=== PATIENT | female | born 1960 | race Caucasian/White ===

== ENCOUNTER 2021-03-05 15:29 | Emergency (ER) | payer BC ==
[2021-03-05] MEDS ORDERED: Cyclobenzaprine 10 MG Tab PO ONE (16:36)
[2021-03-05] MEDS ORDERED: Ketorolac 15 MG/ML SDV IM ONE (18:13)
--- NOTE | 2021-03-05 18:38 | EDM.PDOC ---
<Shorty Shultz - Last Filed: 03/05/21 19:14> ED HPI GENERAL MEDICAL PROBLEM - General Chief Complaint: Back Pain or Injury Stated Complaint: BACK PAIN Time Seen by Provider: 03/05/21 16:20 - History of Present Illness INITIAL COMMENTS - FREE TEXT/NARRATIVE: CHIEF COMPLAINT(S): Back pain HISTORY OF PRESENT ILLNESS: This is a 61-year-old woman with a past medical history of left-sided sciatica who comes to the emergency department with a chief complaint of back pain. The patient states that for the last 3 days she has been experiencing back pain. She states that she woke up with what she thought was sciatica so she went to the chiropractor where they had an adjustment done via a drop table. She states that since that time she has been experiencing pain in her mid thoracic area radiating anteriorly in a bandlike distribution rated 10 out of 10. She states that she has been taking Aleve combination pill which does improve the pain for approximately 4 hours and then returns. She denies any bowel incontinence, urinary incontinence or saddle anesthesia. She denies any fevers or chills. She states that the pain is exacerbated by movement and the pain is so severe that she starts to sweat. She denies any radiation of this pain down her legs and denies any numbness or tingling. Patient states that she took those tablets prior to arrival and her pain has improved. REVIEW OF SYSTEMS: Constitutional: Denies fever, chills. Eyes: Denies eye pain Ears, Nose, Mouth, & Throat: Denies earache Cardiovascular: Denies chest pain Respiratory: Denies shortness of breath Gastrointestinal: Denies Nausea, vomiting, diarrhea, hematochezia. Genitourinary: Denies hematuria, urinary incontinence, bowel incontinence, saddle anesthesia Skin:Denies a rash MSK: Positive for back pain. Neurological: Denies blurred vision Psychiatric: Denies depression PAST MEDICAL HISTORY: As per history of present illness and as reviewed below otherwise noncontributory. SURGICAL HISTORY: As per history of present illness and as reviewed below otherwise noncontributory. SOCIAL HISTORY: As per history of present illness and as reviewed below otherwise noncontributory. FAMILY HISTORY: As per history of present illness and as reviewed below otherwise noncontributory. EXAMINATION OF ORGAN SYSTEMS/BODY AREAS: Constitutional: Blood pressure was 134/59, heart rate 88, respiratory 20 with an oxygen saturation 95% on room air. Temperature 35.8 temporally General: Middle-aged woman who does not appear to be in acute distress Psychiatric: Appropriate mood and affect. Eyes: No scleral icterus or conjunctival erythema ENMT: Moist mucous membranes. No pharyngeal erythema Cardiovascular: Regular, rate, and rhythm. No gallops, murmurs, or rubs. Bilateral upper extremity pulses symmetric and intact. Respiratory: Lungs clear to auscultation bilaterally. No wheezes, rales, or rhonchi. Gastrointestinal: Soft, non-tender, non-distended. Normoactive bowel sounds Genitourinary: No suprapubic tenderness Musculoskeletal: Normal range of motion of bilateral upper and lower extremities. There is no midline thoracic or lumbar tenderness. There is left paraspinal lumbar tenderness and no parathoracic tenderness. Skin: No lesions or abrasions. Neurological: Alert, GCS 15 strength and sensation grossly intact in upper and lower extremities bilaterally MEDICAL DECISION MAKING AND COURSE IN THE ED WITH INTERPRETATION/REVIEW OF DIAGNOSTIC STUDIES: This is a 61-year-old woman with a past medical history of left-sided sciatica who presents to the emergency department with parathoracic tenderness and left paralumbar tenderness who has no evidence of any pain on exam other than left paraspinal tenderness and no midline spinal tenderness. Patient's pain is improved I did offer pain medication at this time however we will observe the patient. I pulled provide the patient with Flexeril by mouth. I did discuss that we could obtain CT thoracic and lumbar spine to evaluate for any bony abnormality given the chiropractic manipulation. She was amenable to this plan. Patient has no red flag symptoms and I do believe this is likely musculoskeletal. DDx: Lumbar radiculopathy, disc herniation, fracture, musculoskeletal strain Patient on reevaluation had some increased pain therefore we will provide the patient with Toradol. We will reevaluate. DISPOSITION: Patient was signed out to oncoming physician pending CT and reevaluation. CONDITION: Fair PROCEDURES: None FINAL IMPRESSION(S)/DIAGNOSES: 1. Acute back pain likely musculoskeletal Shorty Shultz M.D. Back Pain Score (Numeric/FACES): 7 - Related Data Allergies Allergy/AdvReac Type Severity Reaction Status Date / Time No Known Allergies Allergy Verified 03/05/21 15:54 Home Meds: Home Meds Hydrocodone/Acetaminophen [Hydrocodone-Acetamin 5-325 mg] 1 each PO Q6HR PRN #14 tab 03/05/21 [Rx] methocarbamoL [Methocarbamol] 1,500 mg PO TID PRN #42 tablet 03/05/21 [Rx] Social & Family History - Tobacco Use Second Hand Smoke Exposure: No - Caffeine Use Caffeine Use: Reports: None - Recreational Drug Use Recreational Drug Use: No ED ROS GENERAL - Review of Systems Review Of Systems: See Below ED EXAM, GENERAL - Physical Exam Exam: See Below Departure - Departure Disposition: Home, Self-Care 01 Clinical Impression: Acute low back pain, Acute back pain - Discharge Information Prescriptions: Hydrocodone/Acetaminophen [Hydrocodone-Acetamin 5-325 mg] 1 each PO Q6HR PRN #14 tab PRN Reason: Pain methocarbamoL [Methocarbamol] 1,500 mg PO TID PRN #42 tablet PRN Reason: Pain Instructions: Acute Back Pain, Adult Referrals: John Harris MD [Primary Care Provider] - Forms: ED Department Discharge Additional Instructions: You were seen and evaluated in the ER today secondary to acute back pain. You have been given a muscle relaxant as well as an anti-inflammatory medications to assist you with your pain. You are sent home with a prescription for [place] and Robaxin to help you with your pain. [place] with a painkiller and Robaxin is a medicine to help with muscle spasms. Please get plenty rest. You may apply heat to the area over the next several days. Please make an appointment see [facility] family doctor on Sunday or Sunday if your pain does not significantly improved. Please return to the ER if you start developing any new or concerning symptoms such as weakness to your legs, difficulty with urination or moving her bowels. The following information is given to patients seen in the emergency department who are being discharged to home. This information is to outline your options for follow-up care. We provide all patients seen in our emergency department with a follow-up referral. The need for follow-up, as well as the timing and circumstances, are variable depending upon the specifics of your emergency department visit. If you don't have a primary care physician on staff, we will provide you with a referral. We always advise you to contact your personal physician following an emergency department visit to inform them of the circumstance of the visit and for follow-up with them and/or the need for any referrals to a consulting specialist. The emergency department will also refer you to a specialist when appropriate. This referral assures that you have the opportunity for follow-up care with a specialist. All of these measure are taken in an effort to provide you with optimal care, which includes your follow-up. Under all circumstances we always encourage you to contact your private physician who remains a resource for coordinating your care. When calling for follow-up care, please make the office aware that this follow-up is from your recent emergency room visit. If for any reason you are refused follow-up, please contact the [facility] Emergency Department at and asked to speak to the emergency department charge nurse. [facility] [address] [place] [id number] [address] [address] Sepsis Event Note (ED) - Evaluation Sepsis Screening Result: No Definite Risk <Chino Ordaz - Last Filed: 03/05/21 20:28> ED HPI GENERAL MEDICAL PROBLEM - History of Present Illness INITIAL COMMENTS - FREE TEXT/NARRATIVE: 8:27 PM: Signout received by me at 7 PM. Patient's has been reevaluated and chart has been reviewed. Patient presents ER today secondary to pain to her left side. CT scan of her lumbar and thoracic spines are both unremarkable for any acute pathology. Patient feels significantly improved after receiving the Toradol and Flexeril here in the ED. At this time, the patient feels very comfortable with the plan to be discharged home with a prescription for [place] and Flexeril that has been sent to her pharmacy. I have offered the patient additional pain medicines here in the ED however she reports that she feels much better and does not feel like she needs any further pain management while in the ED at this time. Patient be discharged home in stable condition with instructions to follow-up with her doctor on Sunday or Sunday for reevaluation. Patient has been instructed to return to the ED if he develops any new or concerning symptoms such as weakness to her lower extremities, loss of bowel or bladder function, numbness or paresthesias. Reassessment at the time of disposition demonstrates that the patient is in no acute distress. The patient has remained stable throughout the entire ED visit and is without objective evidence for acute process requiring urgent intervention or hospitalization. The patient is stable for discharge, counseling is provided as documented above, discussed symptomatic treatment and specific conditions for return. I have spoken with the patient/caregiver and discussed todays findings, in addition to providing specific details for the plan of care. Questions are answered and there is agreement with the plan. Course - Vital Signs Last Recorded V/S: Last Vital Signs Temp 96.5 F L 03/05/21 15:51 Pulse 87 03/05/21 18:32 Resp 16 03/05/21 18:32 BP 110/47 L 03/05/21 19:21 Pulse Ox 96 03/05/21 18:32 - Orders/Labs/Meds Meds: Medications Discontinued Medications Generic Name Dose Route Start Last Admin Trade Name Marilu PRN Reason Stop Dose Admin Cyclobenzaprine HCl 10 mg 03/05/21 16:36 03/05/21 17:23 Cyclobenzaprine 10 Mg Tab PO 03/05/21 16:37 10 mg ONETIME ONE Administration Ketorolac Tromethamine 15 mg 03/05/21 18:13 03/05/21 18:36 Ketorolac 15 Mg/Ml Sdv IM 03/05/21 18:14 15 mg ONETIME ONE Administration Departure - Departure Time of Disposition: 20:24 Condition: Good Sepsis Event Note (ED) - Focused Exam Vital Signs: Vital Signs Temp Pulse Resp BP Pulse Ox 03/05/21 19:21 110/47 L 03/05/21 18:32 87 16 137/44 L 96 03/05/21 17:51 88 133/48 L 96 03/05/21 16:51 89 16 132/44 L 95 03/05/21 15:51 96.5 F L 88 20 134/59 L 95
--- NOTE | 2021-03-05 20:05 | CT ---
HISTORY: Back pain. TECHNIQUE: CT thoracic spine without contrast. CT lumbar spine without contrast. COMPARISON: None. FINDINGS: Five lumbar type vertebral bodies. Thoracic spine: No fracture. No subluxation. Multilevel degenerative changes greatest in the mid thoracic spine were there is moderate disc space narrowing with vacuum phenomenon and endplate sclerosis. Bone island in T4 vertebral body. Hemangioma in T10 vertebral body. No spinal canal stenosis. Degenerative changes of the lower cervical spine. Lumbar spine: No fracture. No subluxation. Mild disc space narrowing at L5-S1 with vacuum phenomenon. Disc spaces otherwise maintained. Lower lumbar spine facet degenerative changes. No lytic or blastic bone lesions. No spinal canal stenosis. Moderate foraminal stenosis on the right at L4-5. Moderate foraminal stenosis on the right at L5-S1. Degenerative changes of both sacroiliac joints. --- Enlarged right and left paratracheal lymph nodes measuring up to 12 mm. Mild paraseptal emphysema in the right lung. Mild aortoiliac atherosclerotic calcifications. IMPRESSION: 1. No acute abnormality in the thoracic and lumbar spine. 2. Degenerative changes in the lumbar spine primarily at L4-5 and L5-S1. Moderate foraminal stenosis on the right at L4-5 and L5-S1. 3. Mild to moderate degenerative changes in the thoracic spine. 4. Mild mediastinal lymphadenopathy. Please note that all CT scans at this facility use dose modulation, iterative reconstruction, and/or weight-based dosing when appropriate to reduce radiation dose to as low as reasonably achievable. Dictated by Alban Lambert MD @ 03/05/2021 8:04:23 PM (Electronically Signed)
== END 2021-03-05 20:36 | disposition home or self-care (01) ==
LOC: MW.ED 15:29
DX: M54.42 Lumbago with sciatica, left side (principal)
CPT/HCPCS: 72128; 72131; 96372; 99283; A9270; J1885